=== PATIENT | male | born 1975 | race Caucasian/White ===

== ENCOUNTER 2023-03-20 22:58 | Observation (INO) | payer OTHER, SELFPAY ==
[2023-03-20 23:03] VITALS: BP 160/96; PULSE 74; RESP 20; TEMP 36.9; O2SAT 96; BMI 28.7
--- NOTE | 2023-03-20 23:11 | ED.ABDPAIN1 ---
HPI - Abdominal Pain General Chief Complaint: Abdominal Pain Stated Complaint: ABD PAIN Time Seen by Provider: 03/20/23 23:05 Source: patient Mode of arrival: walk-in Limitations: no limitations History of Present Illness HPI narrative: This 47-year-old male presents for evaluation of abdominal pain. The patient states the pain started yesterday and has persisted all day. He has had some chills with nausea and several episodes of vomiting. He thought he may be constipated and took a stool softener yesterday. He did have a bowel movement after that. He has never had any abdominal surgery. He denies any sick contacts. He has not had any diarrhea. He states he had a small bowl of cereal for breakfast this morning just to put something in his stomach but has not had any appetite all day. He now feels very hot and is sweaty. He denies any chest pain or shortness of breath. He denies any sick contacts. Related Data Home Medications Medication Instructions Recorded Confirmed simvastatin 20 mg tablet 20 mg PO DAILY 03/20/23 03/20/23 Allergies Allergy/AdvReac Type Severity Reaction Status Date / Time No Known Drug Allergies Allergy Verified 03/20/23 23:08 Review of Systems ROS Status of ROS 10 or more systems reviewed and unremarkable except as noted in history and below [facility] Social History Smoking status: Never smoker Exam Narrative Exam Narrative: Nurses note and vital signs reviewed and patient is not hypoxic. Blood pressure noted to be elevated at 160/96 General: Pale, uncomfortable appearing adult male, he is mildy diaphoretic, no resp distress, no active vomiting Skin: Warm to the touch, diaphoritic Head: Normocephalic, atraumatic Eye: Normal conjunctiva, no drainage, EOMI. PERRL, no sclera icterus Ears, Nose, Mouth, and Throat: oral mucosa is moist. Cardiovascular: Regular Rate and Rhythm S1 S2, pulses are brisk and equal bilaterally Respiratory: Patient is in no distress, no accessory muscle use, lungs are clear to auscultation, no wheezing, rales or rhonchi Back: non-tender, no CVA tenderness bilaterally to percussion. GI: Normal bowel sounds, RLQ tenderness to palpation with voluntary guarding, +Rovsing sign, + obturator sign Musculoskeletal: The patient has no evidence of calf tenderness, no pitting edema, symmetrical pulses noted bilaterally Neurological: A&O x4, normal speech Psychiatric: Cooperative Constitutional Vital Signs, click to edit/add: Last Vital Signs Temp 98.4 F 03/20/23 23:03 Pulse 96 H 03/21/23 00:29 Resp 16 03/21/23 00:29 BP 129/84 03/21/23 00:29 Pulse Ox 97 03/21/23 00:29 O2 Del Method Room Air 03/21/23 00:29 Course Vital Signs Vital signs: Vital Signs Temperature 98.4 F 03/20/23 23:03 Pulse Rate 74 03/20/23 23:03 Respiratory Rate 20 03/20/23 23:03 Blood Pressure 160/96 H 03/20/23 23:03 Pulse Oximetry 96 03/20/23 23:03 Oxygen Delivery Method Room Air 03/20/23 23:03 Temperature 98.4 F 03/20/23 23:03 Pulse Rate 96 H 03/21/23 00:29 Respiratory Rate 16 03/21/23 00:29 Blood Pressure 129/84 03/21/23 00:29 Pulse Oximetry 97 03/21/23 00:29 Oxygen Delivery Method Room Air 03/21/23 00:29 MDM - Abdominal Pain MDM Narrative Medical decision making narrative: 8-1-pceg-old male who is otherwise healthy presents for evaluation of abdominal pain that started yesterday. It started in the upper abdomen and then went into the lower abdomen earlier today. He has been nauseated and vomiting. Upon arrival he was sweaty and diaphoretic. He has not toxic. Is uncomfortable appearing. He is tender in the right lower quadrant wtih voluntary guarding. He has had anorexia and has positive obturator and rovsing sign, Routine labs are reviewed. He has no elevated white count at 18.9 with a normal hemoglobin. The remainder of his labs are normal. Glucose is mildly elevated at 153. CT of the abdomen/pelvis is positive for acute appendicitis. Case was discussed with DR Vogel, general surgery cotton program technician. He requests IV Unasyn and admission to the hospitalist service. The patient was given an additional dose of IV dilaudid for his pain and IV Unasyn was initiated in the ED. Medical Records Medical records narrative: [place] [address] CT Scan Report Signed Patient: PATRICK MONTEIOR MR#: [id number] : 1975 Acct:[id number] Age/Sex: 47 / M ADM Date: 03/20/23 Loc: ER Attending Dr: Ordering Physician: Georgina Moon Date of Service: 03/20/23 Procedure(s): CT abdomen pelvis w con Accession Number(s): [id number] cc: Hao Barnett M.D.~ [facility] [place] [id number] Patient Name: PATRICK MONTEIRO MRN: [id number] date: 1975 Sex: M Assigned Patient Location: ER Current Patient Location: ER Accession/Order Number: [id number] Exam Date: 03/20/2023 23:58 Report Date: 03/21/2023 00:20 At the request of: GEORGINA MOON Procedure: CT abdomen pelvis w con EXAM: CT abdomen pelvis w con HISTORY: appendicitis COMPARISON: None. TECHNIQUE: IV contrast enhanced CT imaging the abdomen and pelvis was performed using 100 mL of Omnipaque 300 intravenous contrast. Sagittal and coronal reconstructions are provided. Dose reduction techniques were achieved by using automated exposure control and/or adjustment of mA and/or kV according to patient size and/or use of iterative reconstruction technique. FINDINGS: CT ABDOMEN: There is mild dependent atelectasis in the posterior lower lobes. The lung bases are otherwise clear. Cardiac size is normal. There is no pericardial effusion. The liver is enlarged at 20.5 cm in length but is otherwise unremarkable. The gallbladder, pancreas, spleen, adrenal glands, kidneys, aorta, IVC, stomach and small bowel appear within normal limits. There is a small fat-containing umbilical hernia. CT PELVIS: There is a 9 mm obstructing appendicolith near the appendiceal orifice. The appendix is fluid-filled and dilated distal to this level measuring 11 mm in diameter on image 110 with mild surrounding inflammatory change. Additional distal appendicoliths are noted. There is no free air or abscess. The pelvic small bowel loops, colon, seminal vesicles and urinary bladder are unremarkable. There are moderate prostatic calcifications in the normal-sized prostate. No acute osseous abnormality or suspicious bony lesion is seen. CT/CT abdomen pelvis w con IMPRESSION: 1. Uncomplicated acute appendicitis with multiple intrinsic appendicoliths, including a 9 mm obstructing stone near the appendiceal orifice. No free air or abscess. No additional acute findings in the abdomen or pelvis. 2. Hepatomegaly. Electronically authenticated by: DAKOTA MILES Date: 03/21/2023 00:20 Lab Data Labs: Lab Results 03/20/23 Range/Units 23:15 WBC 18.9 H (4.0-11.0) 10^3/uL RBC 5.41 (4.70-6.10) 10^6/uL Hgb 15.5 (14.0-18.0) g/dL Hct 45.5 (42.0-54.0) % MCV 84.1 (80.0-94.0) fL MCH 28.7 (25.9-34.0) pg MCHC 34.1 (29.9-35.2) g/dL RDW 12.1 (11.0-15.0) % Plt Count 383 (150-450) 10^3/uL MPV 9.3 L (9.5-13.5) fL Neut % (Auto) 89.3 H (43.0-75.0) % Lymph % (Auto) 5.5 L (20.5-60.0) % [place] % (Auto) 4.4 (1.7-12.0) % Eos % (Auto) 0.1 L (0.9-7.0) % Baso % (Auto) 0.4 (0.2-2.0) % Neut # (Auto) 16.9 H (1.4-6.5) 10^3/uL Lymph # (Auto) 1.0 L (1.2-3.8) 10^3/uL [place] # (Auto) 0.8 (0.3-0.8) 10^3/uL Eos # (Auto) 0.0 (0.0-0.7) 10^3/uL Baso # (Auto) 0.1 (0.0-0.1) 10^3/uL Abs Immat Gran (auto) 0.06 H (0.00-0.03) 10^3/uL Imm/Tot Granulo (auto) 0.3 (0.0-0.5) % Sodium 134 L (136-145) mmol/L Potassium 4.1 (3.5-5.1) mmol/L Chloride 99 (98-107) mmol/L Carbon Dioxide 26.5 (21.0-32.0) mmol/L Anion Gap 12.6 BUN 14.0 (7.0-18.0) mg/dL Creatinine 1.09 (0.70-1.30) mg/dL Est GFR ( Amer) >60 (>=60) Est GFR (Non-Af Amer) >60 (>=60) BUN/Creatinine Ratio 12.8 Glucose 153 H (74-106) mg/dL Lactate 1.6 (0.4-2.0) mmol/L Calcium 9.1 (8.5-10.1) mg/dL Total Bilirubin 0.9 (0.2-1.0) mg/dL AST 18 (15-37) U/L ALT 39 (16-63) U/L Alkaline Phosphatase 99 (46-116) U/L Total Protein 7.9 (6.4-8.2) g/dL Albumin 4.1 (3.4-5.0) g/dL Globulin 3.8 g/dL Albumin/Globulin Ratio 1.1 Discharge Plan Discharge Chief Complaint: Abdominal Pain Clinical Impression: Acute appendicitis Patient Disposition: Admitted as Observation Time of Disposition Decision: 00:44 Condition: Fair Prescriptions / Home Meds: No Action simvastatin 20 mg tablet 20 mg PO DAILY Referrals: Hao Barnett MD [Primary Care Provider] - 1 week
--- NOTE | 2023-03-20 23:21 | CT_ITS ---
The [address] [address] Patient Name: PATRICK MONTEIRO MRN: [id number] date: 1975 Sex: M Assigned Patient Location: ER Current Patient Location: Accession/Order Number: [id number] Exam Date: 03/20/2023 23:58 Report Date: 03/21/2023 00:20 At the request of: BROCK MARKER Procedure: CT abdomen pelvis w con EXAM: CT abdomen pelvis w con HISTORY: appendicitis COMPARISON: None. TECHNIQUE: IV contrast enhanced CT imaging the abdomen and pelvis was performed using 100 mL of Omnipaque 300 intravenous contrast. Sagittal and coronal reconstructions are provided. Dose reduction techniques were achieved by using automated exposure control and/or adjustment of mA and/or kV according to patient size and/or use of iterative reconstruction technique. FINDINGS: CT ABDOMEN: There is mild dependent atelectasis in the posterior lower lobes. The lung bases are otherwise clear. Cardiac size is normal. There is no pericardial effusion. The liver is enlarged at 20.5 cm in length but is otherwise unremarkable. The gallbladder, pancreas, spleen, adrenal glands, kidneys, aorta, IVC, stomach and small bowel appear within normal limits. There is a small fat-containing umbilical hernia. CT PELVIS: There is a 9 mm obstructing appendicolith near the appendiceal orifice. The appendix is fluid-filled and dilated distal to this level measuring 11 mm in diameter on image 110 with mild surrounding inflammatory change. Additional distal appendicoliths are noted. There is no free air or abscess. The pelvic small bowel loops, colon, seminal vesicles and urinary bladder are unremarkable. There are moderate prostatic calcifications in the normal-sized prostate. No acute osseous abnormality or suspicious bony lesion is seen. CT/CT abdomen pelvis w con IMPRESSION: 1. Uncomplicated acute appendicitis with multiple intrinsic appendicoliths, including a 9 mm obstructing stone near the appendiceal orifice. No free air or abscess. No additional acute findings in the abdomen or pelvis. 2. Hepatomegaly. Electronically authenticated by: DAKOTA MILES Date: 03/21/2023 00:20
[2023-03-20 23:28] LABS: Basophils Absolute Auto 0.1 10^3/uL (0.0-0.1); Basophils Percent Auto 0.4 % (0.2-2.0); Eosinophils Percent Auto 0.1 % (0.9-7.0); Hematocrit 45.5 % (42.0-54.0); Hemoglobin 15.5 g/dL (14.0-18.0); Immature Granulocytes Abs Auto 0.06 10^3/uL (0.00-0.03); Immature Granulocytes Pct Auto 0.3 % (0.0-0.5); Lymphocytes Percent Auto 5.5 % (20.5-60.0); Mean Corpuscular HGB Conc 34.1 g/dL (29.9-35.2); Mean Corpuscular Hemoglobin 28.7 pg (25.9-34.0); Mean Corpuscular Volume 84.1 fL (80.0-94.0); Mean Platelet Volume 9.3 fL (9.5-13.5); Monocytes Absolute Auto 0.8 10^3/uL (0.3-0.8); Monocytes Percent Auto 4.4 % (1.7-12.0); Neutrophils Absolute Auto 16.9 10^3/uL (1.4-6.5); Neutrophils Percent Auto 89.3 % (43.0-75.0); Platelet Count 383 10^3/uL (150-450); Red Blood Count 5.41 10^6/uL (4.70-6.10); Red Cell Distribution Width 12.1 % (11.0-15.0); White Blood Count 18.9 10^3/uL (4.0-11.0)
[2023-03-20] MEDS: 0.9 % SODIUM CHLORIDE 1,000 ML 1000 ML IV (23:38)
[2023-03-20] MEDS: MORPHINE SULFATE 4 MG/ML VIAL IV (23:38)
[2023-03-20] MEDS: ONDANSETRON PF 4 MG/2 ML VIAL IV (23:38)
[2023-03-20 23:53] LABS: Lactate/Lactic Acid 1.6 mmol/L (0.4-2.0)
[2023-03-21] VITALS (25 sets, daily range): BP systolic 113–159; BP diastolic 70–95; PULSE 87–112; RESP 14–22; TEMP 36.7–37.3; O2SAT 88–100; BMI 29.8
[2023-03-21] LABS: Alanine Aminotransferase 39 U/L (16-63); Albumin Globulin Ratio 1.1; Albumin Level 4.1 g/dL (3.4-5.0); Alkaline Phosphatase 99 U/L (46-116); Anion Gap 12.6; Aspartate Amino Transferase 18 U/L (15-37); BUN Creatinine Ratio 12.8; Bilirubin Total 0.9 mg/dL (0.2-1.0); Calcium 9.1 mg/dL (8.5-10.1); Carbon Dioxide 26.5 mmol/L (21.0-32.0); Chloride 99 mmol/L (98-107); Estimated GFR (African America >60 (>=60); Estimated GFR (Non-African Ame >60 (>=60); Globulin 3.8 g/dL; Glucose 153 mg/dL (74-106); Potassium 4.1 mmol/L (3.5-5.1); Sodium 134 mmol/L (136-145); Total Protein 7.9 g/dL (6.4-8.2)
--- NOTE | 2023-03-21 | OP_ITS ---
OPERATION DATE: ??03/21/2023 PREOPERATIVE DIAGNOSIS:?? Acute appendicitis. POSTOPERATIVE DIAGNOSIS:? Gangrenous appendicitis. PROCEDURE:? Laparoscopic appendectomy. SURGEON:? Aime Vogel M.D. ANESTHESIA:? General endotracheal. ESTIMATED BLOOD LOSS:? Less than 10 mL. INDICATIONS AND CONSENT:? Patient is a 47-year-old male presented to the emergency room last night with a 24 hour history of abdominal pain.? Workup revealed evidence of a dilated, inflamed appendix with small fecaliths.? No free fluid or free air.? He did have leukocytosis and right lower quadrant peritoneal signs, all consistent with acute appendicitis.? Indications, risks, benefits, alternatives of proceeding with laparoscopic appendectomy were explained extensively to the patient, including risks of bleeding, infection, bowel injury, appendiceal stump leak, blood clot, pulmonary embolus, heart attack, anesthetic complications, need for further surgery or open procedure.? All of his questions were answered.? Informed consent was obtained. PROCEDURE:? Patient brought to the operating room, placed in the supine position.? General anesthesia was induced.? Villegas catheter was inserted using sterile technique.? Patient was prepped and draped in the usual sterile fashion.? A supraumbilical incision was made with a scalpel blade and carried down through subcutaneous tissue using blunt dissection.? The fascia was grasped and incised.? Two 0 Vicryl stay sutures were placed on either side of the midline fascia.? Chapincito trocar was then inserted and secured using the stay sutures.? The abdomen was then insufflated with carbon dioxide to a pressure of 15 mm/Hg.? The scope was then inserted and the abdomen was visualized.? There was noted to be some exudate around the area of the appendix, which was adherent to the lower abdominal wall, did not appear to be any rupture or purulence.? Two 5 mm ports were then placed; one in the left lower quadrant and one in the suprapubic area, both under direct visualization.? The appendix was freed up bluntly from its fibrinous attachments.? It did appear gangrenous but without perforation.? A window was then created at the base of the mesoappendix, through the avascular portion of the mesoappendix.? The appendix was then stapled across its base using an endoscopic stapler, 45 mm length, the purple load.? The mesentery was then taken down in sections using reloads of the 45 mm staple, the gold vascular load.? Some smaller areas of mesentery were controlled with clips.? Once it was completely removed, it was brought out in an Endocatch bag through the umbilical port site.? The abdomen was then copiously irrigated with several liters of saline until clear.? There was noted to be good hemostasis from the suture lines.? Because of the gangrenous changes and the exudate around the area of the appendix, a 15 round MONICA drain was then placed in the right pericolic gutter and pelvis, brought out through the suprapubic port site.? It was secured to the skin using a 3-0 nylon suture.? All port sites were examined upon withdrawal of the ports.? There was noted to be good hemostasis.? The [place] was then removed from the umbilical area.? The abdomen was deflated.? The fascia was closed with 0 Vicryl figure of eight suture.? All port sites were infiltrated with 0.5% Marcaine.? The skin was then closed with interrupted 4-0 subcuticular Monocryl sutures and skin glue.? Sterile pressure dressings were applied, as well as dressing around the drain sponge.? The drain was placed to closed bulb suction.? Patient tolerated the procedure well. Villegas catheter was removed.? He was extubated and sent to recovery room in good condition.? CC:? Patient?s family physician CICI
--- NOTE | 2023-03-21 | CONS_ITS ---
CONSULTATION DATE: ??03/21/2023 CHIEF COMPLAINT:? Abdominal pain. HISTORY OF PRESENT ILLNESS:? Patient is a 47-year-old male with history of hypercholesterolemia, who presented with approximately now 30 hour history of lower abdominal pain.? He reports it began Monday night as an ache that persisted.? He was able to go to work Monday morning, but the pain persisted.? Last evening, he tried to sleep.? He initially thought he had some constipation, took laxatives and had a bowel movement with no relief.? Pain became more severe.? Overnight, he was unable to sleep, so he presented to the emergency room for evaluation.? He was found to have an elevated white blood cell count, as well as a CT scan with evidence of appendicolith, dilatation of the appendix, as well as some mild inflammatory changes.? No free fluid or free air.? The patient has had no previous abdominal surgeries, is a non-smoker.? Denies aspirin, nonsteroidal anti-inflammatory drug use.? FAMILY HISTORY:? Patient reports his family history is unknown due to being adopted. ALLERGIES:? The patient has no known drug allergies.? MEDICATIONS:? Only medication is simvastatin 20 mg daily. PAST SURGICAL HISTORY:? Significant for fractured collar bone, surgery on the varicose vein of the left hemiscrotum. SOCIAL HISTORY:? Patient is employed at [employer] in maintenance.? Reports occasional alcohol use.? No illicit drug use or tobacco use.? REVIEW OF SYSTEMS:? Ten system review of systems is negative for recent weight loss or weight gain.? Denies increased fatigue or light-headedness.? He has had no earache or tinnitus.? No sinus congestion.? No sore throat or hoarseness.? No chest pain, palpitations or syncope.? No chronic cough, shortness of breath or hemoptysis.? He has had the abdominal pain, some nausea and vomiting.? No bowel changes.? No melena, hematochezia or bright red blood per rectum.? No dysuria, frequency, urgency or hematuria.? No headaches, seizures or tremors.? No easy bruising or bleeding.? No heat or cold intolerance.? No polydipsia, polyphagia or polyuria. PHYSICAL EXAM:? VITAL SIGNS:? Patient?s blood pressure is 159/89.? Pulse is 98 and regular.? Respiratory rate is 18.? Temperature is 99.2.? GENERAL:? In general, he is a well developed, well nourished male, currently in no acute distress. HEENT:? Normocephalic, atraumatic.? Sclerae anicteric.? Conjunctiva not injected.? Oral mucosa is moist without lesions. NECK:? Supple is supple.? There is no adenopathy, thyromegaly or JVD. LUNGS:? Clear bilaterally.? CARDIAC EXAM:? Regular rhythm and rate without appreciable murmurs, rubs or gallops. ABDOMEN:? Soft.? It is non-distended.? There are positive bowel sounds.? There are right lower quadrant peritoneal signs.? No masses, hepatosplenomegaly or hernias.? No CVA tenderness.? SKIN:? Warm and dry without lesions, rashes or ulcers. NEURO EXAM:? Non-focal.? Non-lateralizing.? Patient is awake, alert, oriented with appropriate affect. MUSCULOSKELETAL:? There is normal muscle strength, mass and tone. IMAGING:? CT scan images were personally reviewed to reveal fecalith as well as a dilated appendix with some mild inflammatory changes.? No free fluid or abscess.? No free air.? ASSESSMENT:? A 47-year-old male with evidence of acute appendicitis.? PLAN:? Bowel rest, NPO, IV hydration, antibiotics and proceed with a laparoscopic appendectomy later today.? Indications, risks, benefits, alternatives of proceeding were explained extensively to the patient, including the risks of bleeding, infection, bowel injury, appendiceal stump leak, blood clot, pulmonary embolus, heart attack, anesthetic complications, need for further surgery or open procedure.? All of his questions were answered.? Informed consent was obtained.? CC:? Patient?s family physician CICI
[2023-03-21] MEDS: ACETAMINOPHEN 325 MG TABLET 650 MG PO ×2 (00:34→23:22)
[2023-03-21] MEDS: AMPICILLIN SODIUM/SULBACTAM NA 3 GM in 0.9 % SODIUM CHLORIDE 100 ML IV ×4 (01:01→19:56)
[2023-03-21] MEDS: 0.9 % SODIUM CHLORIDE 1,000 ML 125 ML IV (01:01)
[2023-03-21] MEDS: HYDROMORPHONE HCL 1 MG/ML CARTRIDGE IV (01:01)
--- NOTE | 2023-03-21 03:28 | P.PN_ITS ---
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 It started in his right lower quadrant and radiated to his umbilicus. He had some decreased oral intake. He denies any new medications and did not take any medications at home prior to arrival. On route to the hospital, the patient started having worsening abdominal pain. His last bowel movement was a small 1 at 10 PM. The patient presented to the ED and underwent routine workup. His white blood cell count was 18,000. CT abdomen showed acute appendicitis. The ER provider spoke to general surgery on-call who will take the patient to the OR later in the day. He was started on Unasyn. He is being admitted for further evaluation. Exam Narrative Exam Narrative: General : Alert and oriented x3 HEENT : Extraocular movements intact, pupils equal round and reactive to light and accommodation Neck: Supple, no JVD Chest: Clear to auscultation bilaterally, no wheezes Heart: Regular rate and rhythm, S1 and S2 heard Abdomen: Soft mild tenderness in the right lower quadrant Extremities: No clubbing cyanosis or edema Neurologically: Moving all 4 extremities Skin: No rashes Constitutional Vital Signs, click to edit/add: Last Vital Signs Temp 98.4 F 03/21/23 01:39 Pulse 87 03/21/23 01:39 Resp 18 03/21/23 01:39 BP 143/95 H 03/21/23 01:39 Pulse Ox 93 L 03/21/23 01:39 O2 Del Method Room Air 03/21/23 01:39 Progress Note: Objective Labs Labs: Short CBC 03/20/23 Range/Units 23:15 WBC 18.9 H (4.0-11.0) 10^3/uL Hgb 15.5 (14.0-18.0) g/dL Hct 45.5 (42.0-54.0) % Plt Count 383 (150-450) 10^3/uL BMP 03/20/23 23:15 Sodium 134 L Potassium 4.1 Chloride 99 Carbon Dioxide 26.5 BUN 14.0 Creatinine 1.09 Glucose 153 H Calcium 9.1 Liver Function 11/27/23 Range/Units 23:15 Total Bilirubin 0.9 (0.2-1.0) mg/dL AST 18 (15-37) U/L ALT 39 (16-63) U/L Alkaline Phosphatase 99 (46-116) U/L Albumin 4.1 (3.4-5.0) g/dL Progress Note: A&P Assessment and Plan (1) Acute appendicitis: Plan The patient is a 47-year-old male with above medical problems, presenting with acute appendicitis. Acute appendicitis -Provide supportive care - ivf - NPO -Pain control, antiemetics -Empiric Zosyn -Surgical consult Dyslipidemia -Hold statin perioperatively and resume at discharge Alcohol dependence -Patient states that he drinks Nadir and Coke 2 times a week, last drink was on 03/20. -Start Valium 5 mg IV every 4 hours as needed DVT Prophylaxis - SCDs Medication review -Medication reconciliation form completed Goals of care -Full code Communications -Discussed with the emergency room physician -Discussed with the bedside nurse -Patient updated of plan of care, all questions answered to their satisfaction Disposition -Home when medically stable Telemedicine clause -As the provider of this telehealth evaluation, requested by the patient's evaluating physician, I attest that I introduced myself to the patient, provided my credentials and determined that telemedicine via a real-time, two-way interactive audio and video platform is an appropriate and effective means of providing this service. -I reviewed the patient's chart and had a discussion with the member of the patient's treatment team. -The patient and I mutually agreed with continuation of this evaluation via telemedicine. The patient consented for the telemedicine evaluation. -This virtual encounter was taken place from [place], [place]. The encounter was approximately 35 minutes. The nurse was present during the entire time of the encounter and was able to remove the stethoscope and appropriate directions. The patient was evaluated at [facility] Telemedicine Attestation Telemedicine Attestation I conducted this encounter from [] via secure live, [id number] video conference with the patient, located at [facility] with []. Prior to the interview, the risks and benefits of telemedicine were discussed with the patient and verbal consent was obtained.
[2023-03-21] MEDS: SODIUM CHLORIDE 0.45 % 1,000 ML 75 ML IV (03:50)
[2023-03-21] MEDS: MORPHINE SULFATE 2 MG/ML SYRINGE 1 MG IV (03:50)
[2023-03-21] MEDS: ONDANSETRON PF 4 MG/2 ML VIAL IV (05:42)
--- NOTE | 2023-03-21 06:41 | P.GSCN_ITS ---
History of Present Illness Consult details Consult date: 03/21/23 Narrative: pateint seen/examined/chart and ct images reviewed/consult dictated; acute appendicitis, plan IV antibiotics, NPO, LS appendectomy later today, informed consent obtained. 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 Smoking status: Never smoker Second hand tobacco smoke exposure: No Non-prescribed substance use: denies use Previous occupational history: [employer] Known occupational exposures/hazards: No Highest level of school completed/degree received: Associate degree: occupational, technical, vocational program Do you want help with school or training: No Are you now , , , , never or living with a partner: How often do you get together with friends or relatives: once per week How often do you attend anabaptist or presybeterian services: never Do you belong to any clubs or organizations such as anabaptist groups unions, fraternal or athletic groups, or school groups: no Total score: 1 Score interpretation: A score of less than or equal to 1 indicates the most socially isolated. Little interest or pleasure in doing things: not at all Feeling down, depressed, or hopeless: not at all Feel stressed/tense/nervous/anxious/difficulty sleeping: not at all Due to disability, difficulty making decisions: No Do you think of yourself as: straight/heterosexual Gender Identity: male Meds Home Medications and Allergies Home Medications Medication Instructions Recorded Confirmed Type simvastatin 20 mg tablet 20 mg PO DAILY 03/20/23 03/20/23 History Allergies Allergy/AdvReac Type Severity Reaction Status Date / Time No Known Drug Allergies Allergy Verified 03/20/23 23:08 Exam Constitutional Vital Signs, click to edit/add: Last Vital Signs Temp 99.2 F 03/21/23 04:45 Pulse 98 H 03/21/23 04:45 Resp 20 03/21/23 04:45 BP 159/89 H 03/21/23 04:45 Pulse Ox 88 L 03/21/23 05:58 O2 Del Method Room Air 03/21/23 05:58 Results Labs Labs: Abnormal lab results 03/20/23 Range/Units 23:15 WBC 18.9 H (4.0-11.0) 10^3/uL MPV 9.3 L (9.5-13.5) fL Neut % (Auto) 89.3 H (43.0-75.0) % Lymph % (Auto) 5.5 L (20.5-60.0) % Eos % (Auto) 0.1 L (0.9-7.0) % Neut # (Auto) 16.9 H (1.4-6.5) 10^3/uL Lymph # (Auto) 1.0 L (1.2-3.8) 10^3/uL Abs Immat Gran (auto) 0.06 H (0.00-0.03) 10^3/uL Sodium 134 L (136-145) mmol/L Glucose 153 H (74-106) mg/dL Diabetes panel 03/20/23 Range/Units 23:15 Sodium 134 L (136-145) mmol/L Potassium 4.1 (3.5-5.1) mmol/L Chloride 99 (98-107) mmol/L Carbon Dioxide 26.5 (21.0-32.0) mmol/L BUN 14.0 (7.0-18.0) mg/dL Creatinine 1.09 (0.70-1.30) mg/dL Glucose 153 H (74-106) mg/dL Calcium 9.1 (8.5-10.1) mg/dL AST 18 (15-37) U/L ALT 39 (16-63) U/L Alkaline Phosphatase 99 (46-116) U/L Total Protein 7.9 (6.4-8.2) g/dL Albumin 4.1 (3.4-5.0) g/dL Calcium panel 03/20/23 Range/Units 23:15 Calcium 9.1 (8.5-10.1) mg/dL Albumin 4.1 (3.4-5.0) g/dL Pituitary panel 03/20/23 Range/Units 23:15 Sodium 134 L (136-145) mmol/L Potassium 4.1 (3.5-5.1) mmol/L Chloride 99 (98-107) mmol/L Carbon Dioxide 26.5 (21.0-32.0) mmol/L BUN 14.0 (7.0-18.0) mg/dL Creatinine 1.09 (0.70-1.30) mg/dL Glucose 153 H (74-106) mg/dL Calcium 9.1 (8.5-10.1) mg/dL Adrenal panel 03/20/23 Range/Units 23:15 Sodium 134 L (136-145) mmol/L Potassium 4.1 (3.5-5.1) mmol/L Chloride 99 (98-107) mmol/L Carbon Dioxide 26.5 (21.0-32.0) mmol/L BUN 14.0 (7.0-18.0) mg/dL Creatinine 1.09 (0.70-1.30) mg/dL Glucose 153 H (74-106) mg/dL Calcium 9.1 (8.5-10.1) mg/dL Total Bilirubin 0.9 (0.2-1.0) mg/dL AST 18 (15-37) U/L ALT 39 (16-63) U/L Alkaline Phosphatase 99 (46-116) U/L Total Protein 7.9 (6.4-8.2) g/dL Albumin 4.1 (3.4-5.0) g/dL All other labs normal. Assessment and Plan Assessment and Plan (1) Acute appendicitis:
[2023-03-21] MEDS: PANTOPRAZOLE SODIUM 40 MG VIAL IV (06:43)
[2023-03-21 06:54] LABS: Hematocrit 42.3 % (42.0-54.0); Hemoglobin 14.4 g/dL (14.0-18.0); Mean Corpuscular Hemoglobin 28.4 pg (25.9-34.0); Mean Corpuscular Volume 83.4 fL (80.0-94.0); Platelet Count 298 10^3/uL (150-450); Red Blood Count 5.07 10^6/uL (4.70-6.10); Red Cell Distribution Width 12.3 % (11.0-15.0); White Blood Count 11.2 10^3/uL (4.0-11.0)
[2023-03-21 07:18] LABS: Alanine Aminotransferase 33 U/L (16-63); Albumin Level 3.5 g/dL (3.4-5.0); Alkaline Phosphatase 89 U/L (46-116); Anion Gap 14.7; Aspartate Amino Transferase 14 U/L (15-37); BUN Creatinine Ratio 12.2; Bilirubin Total 1.4 mg/dL (0.2-1.0); Calcium 8.1 mg/dL (8.5-10.1); Carbon Dioxide 24.9 mmol/L (21.0-32.0); Chloride 99 mmol/L (98-107); Estimated GFR (African America >60 (>=60); Estimated GFR (Non-African Ame >60 (>=60); Globulin 3.4 g/dL; Glucose 159 mg/dL (74-106); Potassium 3.6 mmol/L (3.5-5.1); Sodium 135 mmol/L (136-145); Total Protein 6.9 g/dL (6.4-8.2)
[2023-03-21 07:23] LABS: Lactate/Lactic Acid 1.2 mmol/L (0.4-2.0)
[2023-03-21 07:33] LABS: Lymphocytes Absolute Manual 0.56 10^3/uL (1.20-3.80); Segmented Neut Absolute Manual 10.64 10^3/uL (1.4-6.5)
[2023-03-21 08:12] LABS: Bilirubin Urine NEGATIVE (NEGATIVE); Blood Urine SMALL (NEGATIVE); Clarity Urine CLEAR (CLEAR); Color Urine LT. YELLOW (YELLOW); Glucose Urine UA NEGATIVE (NEGATIVE); Ketones Urine 15 mg/dL (NEGATIVE); Leukocyte Esterase Urine NEGATIVE (NEGATIVE); Nitrite Urine NEGATIVE (NEGATIVE); Protein Urine NEGATIVE (NEG/TRACE); Specific Gravity Urine >=1.030 (1.005-1.025); Urobilinogen Urine 0.2 EU/dL (0.2-1.0)
[2023-03-21 08:28] LABS: Bacteria Urine NONE SEEN #/HPF (NONE SEEN); Cast Seen? NONE SEEN #/LPF (NONE SEEN); Crystals Seen? None Seen #/HPF (None Seen); Mucus Urine NONE SEEN (NONE SEEN); RBC Urine 0-2 #/HPF (0-2); Squamous Epithelial Cell Urine NONE SEEN #/LPF (NONE/RARE); Urine Culture Indicated ALREADY ORDERED; WBC Urine 0-2 #/HPF (NONE SEEN)
--- NOTE | 2023-03-21 09:10 | P.HP_ITS ---
H&P: HPI History of Present Illness Chief complaint: ABD PAIN ACUTE APPENDICITIS Narrative: Patient with acute onset of mid abdominal pain. This is approximately 24 hours prior to presentation to the emergency room. Pain persisted throughout the day. Presented to the emergency room. CT scan showed acute appendicitis without rupture on CT scan. Significant leukocytosis. Negative lactate though. 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 Smoking status: Never smoker Second hand tobacco smoke exposure: No Non-prescribed substance use: denies use Previous occupational history: [employer] Known occupational exposures/hazards: No Highest level of school completed/degree received: Associate degree: occupational, technical, vocational program Do you want help with school or training: No Are you now , , , , never or living with a partner: How often do you get together with friends or relatives: once per week How often do you attend denominational or latter-day services: never Do you belong to any clubs or organizations such as denominational groups unions, fraternal or athletic groups, or school groups: no Total score: 1 Score interpretation: A score of less than or equal to 1 indicates the most socially isolated. Little interest or pleasure in doing things: not at all Feeling down, depressed, or hopeless: not at all Feel stressed/tense/nervous/anxious/difficulty sleeping: not at all Due to disability, difficulty making decisions: No Do you think of yourself as: straight/heterosexual Gender Identity: male Meds Home Medications and Allergies Home Medications Medication Instructions Recorded Confirmed Type simvastatin 20 mg tablet 20 mg PO DAILY 03/20/23 03/20/23 History Allergies Allergy/AdvReac Type Severity Reaction Status Date / Time No Known Drug Allergies Allergy Verified 03/20/23 23:08 Exam Constitutional Vital Signs, click to edit/add: Last Vital Signs Temp 99.2 F 03/21/23 04:45 Pulse 98 H 03/21/23 04:45 Resp 20 03/21/23 04:45 BP 159/89 H 03/21/23 04:45 Pulse Ox 97 03/21/23 08:06 O2 Del Method Room Air 03/21/23 05:58 Documenting provider has reviewed patient's vital signs: yes Common normals: no apparent distress Chest Common normals: inspection of chest normal Respiratory Common normals: normal respiratory effort and clear to auscultation bilaterally Cardio Common normals: regular rhythm and no murmurs GI Inspection: normal to inspection Palpation: tender (no pain in RLQ wiht palp LLQ, + rebound) Results Labs Labs: Short CBC 03/20/23 03/21/23 Range/Units 23:15 06:45 WBC 18.9 H 11.2 H (4.0-11.0) 10^3/uL Hgb 15.5 14.4 (14.0-18.0) g/dL Hct 45.5 42.3 (42.0-54.0) % Plt Count 383 298 (150-450) 10^3/uL BMP 03/20/23 03/21/23 23:15 06:45 Sodium 134 L 135 L Potassium 4.1 3.6 Chloride 99 99 Carbon Dioxide 26.5 24.9 BUN 14.0 11.0 Creatinine 1.09 0.90 Glucose 153 H 159 H Calcium 9.1 8.1 L Liver Function 03/20/23 03/21/23 Range/Units 23:15 06:45 Total Bilirubin 0.9 1.4 H (0.2-1.0) mg/dL AST 18 14 L (15-37) U/L ALT 39 33 (16-63) U/L Alkaline Phosphatase 99 89 (46-116) U/L Albumin 4.1 3.5 (3.4-5.0) g/dL Urine 03/21/23 Range/Units 07:25 Urine Color Lt. yellow (YELLOW) Urine Clarity Clear (CLEAR) Urine pH 6.0 (5.0-9.0) Ur Specific [place] >=1.030 A (1.005-1.025) Urine Protein Negative (NEG/TRACE) mg/dL Urine Glucose (UA) Negative (NEGATIVE) mg/dL Assessment and Plan Assessment and Plan (1) Acute appendicitis: Plan Borderline hypertension, leukocytosis, hyponatremia, hyperglycemia secondary to acute appendicitis with acute abdomen. Rebound tenderness. Leukocytosis. Will repeat labs this morning. Surgical consult in place, surgery later today otherwise vital signs are stable Mild hypoxia likely secondary to atelectasis-lungs are fairly clear. Will start OPEP. Hyponatremia secondary to dehydration-IV fluids, patient currently n.p.o. status for surgery later today repeat labs History of alcohol abuse patient denies any type of withdrawal symptoms. Does have hepatomegaly ago. Discussed need to discontinue drinking altogether with possible progression of liver disease related to alcohol use
[2023-03-21] MEDS: MORPHINE SULFATE 2 MG/ML SYRINGE IV (11:14)
[2023-03-21] MEDS: IPRATROPIUM/ALBUTEROL SULFATE 3 ML AMPUL.NEB IH ×2 (11:56→23:03)
[2023-03-21] MEDS: PROMETHAZINE HCL 25 MG/ML VIAL 12.5 MG IV (15:11)
[2023-03-21] MEDS: LACTATED RINGER'S SOLUTION 1,000 ML 75 ML IV (16:49)
[2023-03-21] MEDS: KETOROLAC TROMETHAMINE 30 MG/ML VIAL IVP (18:20)
[2023-03-21] MEDS: BUPIVACAINE HCL 0.5% PF 50 MG/10 ML VIAL 20 ML INJ (18:24)
[2023-03-21] MEDS: LACTATED RINGER'S SOLUTION 1,000 ML 50 ML IV (18:24)
--- NOTE | 2023-03-21 19:44 | PC.NURSE ---
MONICA drain stripped and drained. Dressing CDI to abd.
[2023-03-21] MEDS: LACTATED RINGER'S SOLUTION 1,000 ML 125 ML IV (19:58)
[2023-03-22] MEDS: AMPICILLIN SODIUM/SULBACTAM NA 3 GM in 0.9 % SODIUM CHLORIDE 100 ML IV ×2 (01:51→08:23)
[2023-03-22] MEDS: KETOROLAC TROMETHAMINE 30 MG/ML VIAL IVP (01:52)
[2023-03-22] MEDS: ACETAMINOPHEN 325 MG TABLET 650 MG PO ×2 (03:43→12:35)
[2023-03-22 04:05] VITALS: BP 128/76; PULSE 88; RESP 16; TEMP 36.9; O2SAT 94
[2023-03-22 05:12] LABS: Basophils Percent Auto 0.4 % (0.2-2.0); Hematocrit 40.6 % (42.0-54.0); Hemoglobin 13.5 g/dL (14.0-18.0); Immature Granulocytes Abs Auto 0.04 10^3/uL (0.00-0.03); Immature Granulocytes Pct Auto 0.4 % (0.0-0.5); Lymphocytes Absolute Auto 0.3 10^3/uL (1.2-3.8); Lymphocytes Percent Auto 2.9 % (20.5-60.0); Mean Corpuscular HGB Conc 33.3 g/dL (29.9-35.2); Mean Corpuscular Hemoglobin 28.8 pg (25.9-34.0); Mean Corpuscular Volume 86.8 fL (80.0-94.0); Mean Platelet Volume 9.4 fL (9.5-13.5); Monocytes Absolute Auto 0.5 10^3/uL (0.3-0.8); Monocytes Percent Auto 4.4 % (1.7-12.0); Neutrophils Absolute Auto 10.2 10^3/uL (1.4-6.5); Neutrophils Percent Auto 91.9 % (43.0-75.0); Platelet Count 273 10^3/uL (150-450); Red Blood Count 4.68 10^6/uL (4.70-6.10); Red Cell Distribution Width 12.9 % (11.0-15.0)
[2023-03-22 05:30] LABS: Anion Gap 12.4; Calcium 8.6 mg/dL (8.5-10.1); Carbon Dioxide 26.2 mmol/L (21.0-32.0); Chloride 100 mmol/L (98-107); Estimated GFR (African America >60 (>=60); Estimated GFR (Non-African Ame 59 (>=60); Glucose 148 mg/dL (74-106); Potassium 3.6 mmol/L (3.5-5.1); Sodium 135 mmol/L (136-145)
--- NOTE | 2023-03-22 07:03 | PM.GSPN ---
Progress Note: A&P Assessment and Plan (1) Acute appendicitis: Assessment and Plan: doing well Plan continue antibiotics; advance to regular diet as tolerated; will remove miracle drain later this morning, discharge later today on Augmentin for 5 days; f/u with me next week. no lifting > 10 lbs fro 4 weeks. Subjective Subjective Interval history: POD # 1 s/p LS appendectomy for acute gangrenous appendicitis with localized pertitonitis doing well, pain controlled with Toradol and tylenol, afebrile, tolerating liquids; voiding well; no N/V; ambulating Exam Narrative Exam Narrative: abd: soft, normal bs, minimal distension, miracle with serosanguineous drainage, dressings clean, dry, intact. Constitutional Vital Signs, click to edit/add: Last Vital Signs Temp 98.5 F 03/22/23 04:05 Pulse 88 03/22/23 04:05 Resp 16 03/22/23 04:05 BP 128/76 03/22/23 04:05 Pulse Ox 94 L 03/22/23 04:05 O2 Del Method Room Air 03/22/23 04:05 O2 Flow Rate 1 03/21/23 13:18 Urinary Catheter Management Urinary Catheter Management Urethral: Cath placed during this visit: no
--- NOTE | 2023-03-22 07:23 | P.DS_ITS ---
DS: Providers Provider Date of admission: 03/21/23 01:34 Primary care physician: Hao Barnett MD Consults: 03/21/23 03:36 Consult to General Surgeon Routine Consulting Provider: Aime Vogel Reason for consultation: appendicitis DS: Diagnosis Discharge Diagnosis (1) Acute appendicitis: Plan Borderline hypertension, leukocytosis, hyponatremia, hyperglycemia secondary to acute appendicitis with acute abdomen resulting in Sepsis (Tachy, leukocytosis, known infection) Mild hypoxia likely secondary to atelectasis Hyponatremia secondary to dehydration History of alcohol abuse Hyperglycemia Acute blood loss - 2 Gm ? DS: Summary Hospital Course Hospital Course: Patient admitted with increasing abdominal pain. Found to have acute appendicitis in the emergency room. Tachycardia, leukocytosis resulting in symptoms consistent with sepsis. Patient was taken to the operating room the following day. White blood cell count was improving prior to the operating room. Hemoglobin was down somewhat postoperatively. Possible acute blood loss versus dilutional. Stable today. Patient no complications from the removal of the appendix. Appeared to be gangrenous. Likely discharge home on antibiotics. Only other significant finding was he did have some mild hyperglycemia. Routine labs done over the summer were normal. Will monitor that as an outpatient. With vital signs stable lab results improved, patient stable for discharge to home, plan per Dr. Vogel. Follow-up lives with Dr. Vogel. Does not need to follow-up with me in the office for this. Time Spent with Patient Time attestation: Total time spent providing and/or coordinating discharge services: Exam Constitutional Vital Signs, click to edit/add: Last Vital Signs Temp 98.5 F 03/22/23 04:05 Pulse 88 03/22/23 04:05 Resp 16 03/22/23 04:05 BP 128/76 03/22/23 04:05 Pulse Ox 94 L 03/22/23 04:05 O2 Del Method Room Air 03/22/23 04:05 O2 Flow Rate 1 03/21/23 13:18 Documenting provider has reviewed patient's vital signs: yes Common normals: no apparent distress Chest Common normals: inspection of chest normal Respiratory Common normals: normal respiratory effort and clear to auscultation bilaterally Cardio Common normals: regular rhythm and no murmurs GI Inspection: normal to inspection (Deferred on examination to Dr. Vogel) DS: Data Data Completed and Pending Labs on day of discharge: Labs from last 24 hours 03/22/23 03/21/23 03/21/23 04:24 07:25 06:45 WBC 11.0 RBC 4.68 L Hgb 13.5 L Hct 40.6 L MCV 86.8 MCH 28.8 MCHC 33.3 RDW 12.9 Plt Count 273 MPV 9.4 L Neut % (Auto) 91.9 H Lymph % (Auto) 2.9 L [place] % (Auto) 4.4 Eos % (Auto) 0.0 L Baso % (Auto) 0.4 Neut # (Auto) 10.2 H Lymph # (Auto) 0.3 L [place] # (Auto) 0.5 Eos # (Auto) 0.0 Baso # (Auto) 0.0 Abs Immat Gran (auto) 0.04 H Seg Neuts % (Manual) 95.0 Lymphocytes % (Manual) 5.0 L Monocytes % (Manual) 0.0 L Eosinophils % (Manual) 0.0 L Basophils % (Manual) 0.0 L Imm/Tot Granulo (auto) 0.4 Neutrophils # (Manual) 10.64 H Lymphocytes # (Manual) 0.56 L Monocytes # (Manual) 0.00 L Eosinophils # (Manual) 0.00 Basophils # (Manual) 0.00 Sodium 135 L 135 L Potassium 3.6 3.6 Chloride 100 99 Carbon Dioxide 26.2 24.9 Anion Gap 12.4 14.7 BUN 13.0 11.0 Creatinine 1.30 0.90 Est GFR ( Amer) >60 >60 Est GFR (Non-Af Amer) 59 L >60 BUN/Creatinine Ratio 10.0 12.2 Glucose 148 H 159 H Lactate 1.2 Calcium 8.6 8.1 L Total Bilirubin 1.4 H AST 14 L ALT 33 Alkaline Phosphatase 89 Total Protein 6.9 Albumin 3.5 Globulin 3.4 Albumin/Globulin Ratio 1.0 Urine Color Lt. yellow Urine Clarity Clear Urine pH 6.0 Ur Specific [place] >=1.030 A Urine Protein Negative Urine Glucose (UA) Negative Urine Ketones 15 A Urine Occult Blood Small A Urine Nitrite Negative Urine Bilirubin Negative Urine Urobilinogen 0.2 Ur Leukocyte Esterase Negative Urine RBC 0-2 Urine WBC 0-2 A Ur Squamous Epith Cells None seen Urine Crystals None seen Urine Bacteria None seen Urine Casts None seen Urine Mucus None seen Ur Culture Indicated? Already ordered Discharge Plan Discharge Disposition: Home, Self-Care Condition: Fair Discharge Medications: Continued simvastatin 20 mg tablet 20 mg PO DAILY Forms: Portal Instructions
[2023-03-22] MEDS: PANTOPRAZOLE SODIUM 40 MG VIAL IV (08:24)
== END 2023-03-22 12:45 | disposition home or self-care (01) ==
LOC: ER 03-21 00:50 → MS 03-21 01:35
PROVIDERS: Internal Medicine; Surgery; Admitting Provider Family Medicine; Emergency Provider Emergency Medicine; PCP Family Medicine; Visit Provider Family Medicine
PROC: (CPT 44970; principal; 2023-03-21 15:00)
DX: A41.9 Sepsis, unspecified organism (principal); K35.31 Acute appendicitis with localized peritonitis and gangrene, without perforation; E78.00 Pure hypercholesterolemia, unspecified; E87.1 Hypo-osmolality and hyponatremia; R73.9 Hyperglycemia, unspecified; R03.0 Elevated blood-pressure reading, without diagnosis of hypertension; R09.02 Hypoxemia; E86.0 Dehydration; F10.10 Alcohol abuse, uncomplicated; D64.9 Anemia, unspecified; Z87.81 Personal history of (healed) traumatic fracture; Z79.899 Other long term (current) drug therapy
CPT/HCPCS: 44970; 36415; 74177; 80048; 80053; 81001; 83605; 85025; 85027; 87040; 87086; 88304; 94640; 94667; 94668; 94761; 96361; 96365; 96366; 96367; 96375; 96376; 99285; G0378; J1170; J2704; Q3014; Q9967